=== PATIENT | male | born 1975 | race Two or more races ===

== ENCOUNTER 2023-06-16 16:45 | Emergency (ER) | payer OTHER ==
[~2023-06-16] VITALS: Ht 175.3 cm; Wt 79.4 kg
[2023-06-16] MEDS ORDERED: OxyCODONE HCL/APAP UD (PERCOCET) PO ONE (17:15)
[2023-06-16] MEDS ORDERED: KETOROLAC TROMETHAMINE 60 MG VIAL IM ONE (17:15)
[2023-06-16] MEDS ORDERED: MOBIC7.5 MG PO (17:38)
== END 2023-06-16 17:52 | disposition home or self-care (01) ==
LOC: ER 16:46
DX: S43.005A Unspecified dislocation of left shoulder joint, initial encounter (principal); X58.XXXA Exposure to other specified factors, initial encounter; Y93.11 Activity, swimming; Y92.832 Beach as the place of occurrence of the external cause; Y99.9 Unspecified external cause status; Z91.013 Allergy to seafood